=== PATIENT | female | born 1955 | race Caucasian/White ===

== ENCOUNTER 2022-06-18 13:56 | Outpatient (CLI) | payer OTHER, SELFPAY | END 2022-06-18 13:57 | disposition home or self-care (01) | LOC: ANHBWCAUD 14:04 | PROVIDERS: PCP Otolaryngology; Visit Provider Nurse Practitioner Family | DX: H91.93 Unspecified hearing loss, bilateral (principal) | CPT/HCPCS: 92557; 92567 ==